=== PATIENT | female | born 1940 | race Caucasian/White ===

== ENCOUNTER 2021-04-08 14:11 | Emergency (ER) | payer OTHER, MEDICAID ==
[~2021-04-08] VITALS: Ht 162.6 cm; Wt 72.6 kg
--- NOTE | 2021-04-08 14:11 | NUR ---
BIBA BLS TO ER BED 4
[2021-04-08 14:19] VITALS: BP 138/60
--- NOTE | 2021-04-08 15:09 | NUR ---
80 Y/O F PATIENT PRESENTS TO ED WITH POSSIBLE ETOH, CARE REPORTS THAT PT WAS FOUND ON SIDEWALK OUTSIDE OF HOUSE WITH SLURRED WORDS AND SMELLS OF ETOH. [facility] STATES PT FAMILY REQUESTED TO COME HERE. DENIES N/V/D; SKIN IS PINK/WARM/DRY; AAOX4 BUT VISIBLY IN DISRESS/UPSET; LUNGS CLEAR BL; HR EVEN AND REGULAR; PT DENIES ANY FEVER, CP, SOB, OR COUGH AT THIS TIME; PATIENT STATES PAIN OF 0/10 AT THIS TIME; PATIENT POSITIONED FOR COMFORT; HOB ELEVATED; BEDRAILS UP X2; BED DOWN. ER MD MADE AWARE OF PT STATUS. PT DENIES FALL, LOC OR INJURY AT THIS TIME. PMH: DENIES NKA MED: BUPROPION
--- NOTE | 2021-04-08 15:27 | NUR ---
SPOKE WITH PATIENT LOUISA BROCK AND WAS INFORMED PT DID NOT REQUEST TO COME TO [place] AND REQUESTED TO HAVE HER GRANDMOTHER TAKEN TO [place]. PER LOUISA "SHE WAS TOLD HER GRANDMOTHER WOULD BE TAKEN TO [place]. 5 MIN LATER SHE WAS THEN TOLD HER GRANDMOTHER WOULD BE TAKEN TO [place]." PER PT FAMILY THEY NEVER REQUESTED TO HAVE HER GRANDMOTHER TO [place]. PER EMS PT HAD REQUESTED TO COME TO [facility] FOR TREATMENT CALLED AND SPOKE WITH TIANNA FROM [facility] AND INFORMED ON SITUATION. INFORMED THAT PATIENT NEVER REQUESTED TO COME TO [place]. WAS TOLD WOULD REFER TO [facility] [employer] AND WOULD RECEIVE A CALL BACK. CALLED AND SPOKE WITH CORKY BERTRAND [ ] IN REGARDS TO SITUATION OCCURED. INFORMED JERZY THAT FAMILY IS UPSET AND WOULD LIKE TO INQUIRE ABOUT WHAT RESULTED IN PATIENT COMING TO [place]. WAS TOLD WOULD "HE WOULD LOOK INTO THE SITUATION AND REACH OUT TO UNIT BEFORE CALLING BACK." Addendum: 04/08/21 at 1541 by [email or web address] [id number]
[2021-04-08 16:03] VITALS: BP 101/63
--- NOTE | 2021-04-08 16:03 | NUR ---
Patient discharged with v/s stable. Written and verbal after care instructions given FOR ALCOHOL INTOXICATION and explained. Patient verbalized understanding. Ambulatory with steady gait. All questions addressed prior to discharge. Advised to follow up with PMD.
== END 2021-04-08 16:03 | disposition home or self-care (01) ==
LOC: MED 14:11
DX: F10.129 Alcohol abuse with intoxication, unspecified (principal); R93.0 Abnormal findings on diagnostic imaging of skull and head, not elsewhere classified
CPT/HCPCS: 70450; 99284